=== PATIENT | female | born 1955 | race Caucasian/White ===

== ENCOUNTER 2023-06-04 15:22 | Outpatient (CLI) | payer MEDICARE, SELFPAY ==
--- NOTE | ~2023-06-04 | XR_ITS ---
XR lumbar spine 2-3V DATE: 06/04/2023 15:40 INDICATION: Low back pain TECHNIQUE: Standing AP, lateral and coned lateral lumbosacral views COMPARISON: None FINDINGS: There is thoracolumbar levoscoliosis. Included lower thoracic and lumbar pedicles are intact. No fracture or bone destruction or spondyloli sthesis of the lumbar spine. Moderately severe degenerative disc disease and prominent anterior spurring at L2-3. There is moderat e degenerative disc disease of the remaining lumbar interspaces. The sacroiliac joints are intact. Abdominal aortic calcification, without apparent aneurysm. IMPRESSION: Multilevel degenerative disc disease, most prominent at L2-3 Reviewed, dictated and finalized at location [facility]
== END 2023-06-04 15:23 | disposition home or self-care (01) ==
PROVIDERS: PCP Family Medicine Adolescent Medicine; Visit Provider Nurse Practitioner Family
DX: M51.36 Other intervertebral disc degeneration, lumbar region (principal)
CPT/HCPCS: 72100